=== PATIENT | female | born 1955 | race Caucasian/White ===

== ENCOUNTER 2017-01-10 09:24 | Emergency (ER) | payer MEDICAID, OTHER ==
[~2017-01-10] VITALS: Ht 165.1 cm; Wt 56.0 kg
[2017-01-10 12:30] VITALS: BP 165/74
== END 2017-01-10 13:34 | disposition home or self-care (01) ==
LOC: ER 12:20
DX: K64.4 Residual hemorrhoidal skin tags (principal); K59.00 Constipation, unspecified; E78.00 Pure hypercholesterolemia, unspecified; Z88.1 Allergy status to other antibiotic agents
CPT/HCPCS: 99283

== ENCOUNTER 2017-06-15 14:25 | Emergency (ER) | payer OTHER ==
[~2017-06-15] VITALS: Ht 152.4 cm; Wt 54.5 kg
[2017-06-15] MEDS ORDERED: SIMVASTATIN (15:11)
[2017-06-15] MEDS ORDERED: SYNTHROID (15:11)
[2017-06-15 19:25] VITALS: BP 131/74
== END 2017-06-15 19:32 | disposition home or self-care (01) ==
LOC: ER 15:21
DX: J01.90 Acute sinusitis, unspecified (principal); J02.9 Acute pharyngitis, unspecified; E05.90 Thyrotoxicosis, unspecified without thyrotoxic crisis or storm; E78.00 Pure hypercholesterolemia, unspecified
CPT/HCPCS: 99283

== ENCOUNTER 2018-09-02 20:59 | Emergency (ER) | payer OTHER ==
[~2018-09-02] VITALS: Ht 152.4 cm; Wt 57.0 kg
[~2018-09-02 20:59] MED LIST: SIMVASTATIN; SYNTHROID
[2018-09-02 21:59] VITALS: BP 146/82
== END 2018-09-03 01:00 | disposition left against medical advice (07) ==
LOC: ER 21:26
DX: Z53.21 Procedure and treatment not carried out due to patient leaving prior to being seen by health care provider (principal)